=== PATIENT | male | born 1965 ===

== ENCOUNTER 2018-07-28 05:48 | Day surgery (SDC) | payer OTHER ==
[~2018-07-28 05:48] MED LIST: FORTAMET1000 MG PO; GABAPENTIN100 MG PO; GLYNASE3 MG PO; SYNTHROID88 MCG PO; WELLBUTRIN XL300 MG PO; ZOLOFT100 MG PO
== END 2018-07-28 09:20 | disposition home or self-care (01) ==
LOC: AMB-ENDOS 05:48
DX: K57.30 Diverticulosis of large intestine without perforation or abscess without bleeding (principal); K64.2 Third degree hemorrhoids; K92.1 Melena